=== PATIENT | female | born 1950 | race Caucasian/White ===

== ENCOUNTER 2018-07-11 13:08 | Inpatient (IN) | payer OTHER ==
[2018-07-11] VITALS (9 sets, daily range): BP systolic 96–150; BP diastolic 44–65
[~2018-07-11] VITALS: Ht 165.1 cm; Wt 101.3 kg
[~2018-07-11 13:08] MED LIST: AMLO10TA80 PO; ASPI-986 PO; ATEN-42 PO; CHOL500010 PO; CITA20TA75 PO; CLOP75TA33 PO; ESOM40CA PO; GABA-531 PO; HYDR25TA PO; LINA5TAB PO; LIRA0.6P2 SUBCUT; LOSA25TA12 PO; METF500T7 PO; METO-293 PO; POTA10CA42 PO
[2018-07-11] MEDS ORDERED: DEXTROSE 50% WATER 50ML SYRINGE IV ONE ×2 (13:26→17:40)
[2018-07-11] MEDS ORDERED: SODIUM CHLORIDE 0.9% 1000ML BAG (SEPSIS BOLUS) IV ONE (13:45)
[2018-07-11 14:19] LABS: CLARITY URINE CLEAR (CLEAR); COLOR URINE YELLOW (YELLOW); KETONES URINE NEGATIVE (NEGATIVE); LEUKOCYTE ESTERASE URINE NEGATIVE (NEGATIVE); NITRITE URINE NEGATIVE (NEGATIVE); OCCULT BLOOD URINE NEGATIVE (NEGATIVE); PH URINE 6.5 (4.5-8.0); PROTEIN URINE NEGATIVE (NEGATIVE); SPECIFIC GRAVITY URINE 1.012 (1.005-1.030); UROBILINOGEN URINE 0.2 E.U./dL (0.2-1.0)
[2018-07-11 14:20] LABS: BASOPHILS % 0.4 % (0.0-2.0); EOSINOPHILS % 1.1 % (0.0-5.0); HEMATOCRIT. 39.4 % (36.0-48.0); HEMOGLOBIN. 13.2 g/dL (12.0-16.0); LYMPHOCYTES % 29.8 % (20.0-50.0); MEAN CORPUSCULAR HEMOGLOBIN 28.2 pg (28.0-32.0); MEAN CORPUSCULAR VOLUME 84.4 fL (81.0-99.0); MEAN PLATELET VOLUME 7.6 fl (7.4-10.4); MONOCYTES % 4.5 % (2.0-8.0); NEUTROPHILS % 64.2 % (40.0-76.0); PLATELET 266 x1000/uL (130-400); RED BLOOD CELL COUNT 4.67 mill/uL (4.2-5.4); RED CELL DISTRIBUTION WIDTH 16.3 % (11.6-14.6)
[2018-07-11 14:23] LABS: CHLORIDE 105 mEq/L (98-107); INR 0.9; PROTHROMBIN TIME 9.4 sec (9.1-11.1)
[2018-07-11] MEDS ORDERED: AZTREONAM 2 GM in DEXT 5% WATER 100 ML IV ONE (14:45)
[2018-07-11] MEDS ORDERED: LEVOFLOXACIN 750MG PREMIX 150 ML IV SCH (14:45)
[2018-07-11] MEDS ORDERED: FENTANYL CITRATE/PF 500 MCG in SODIUM CHLORIDE 0.9% 40 ML IV STA ×2 (14:51→15:57)
[2018-07-11] MEDS ORDERED: FENTANYL CITRATE/PF 50MCG/ML 2ML VIAL IV ONE (15:00)
[2018-07-11] MEDS ORDERED: ETOMIDATE 2MG/ML 10ML VIAL IV ONE (15:00)
[2018-07-11] MEDS ORDERED: SUCCINYLCHOLINE CHLORIDE 200MG/10ML IV ONE (15:00)
[2018-07-11] MEDS: PROPOFOL 10MG/ML 100ML 100 ML IV SCH ×2 (15:15→20:28)
[2018-07-11 15:48] LABS: BG BASE EXCESS -1.9 mmol/L (-2.0-2.0); BG CARBOXYHEMOGLOBIN 0.1 % (0.5-1.5); BG DEOXYHEMOGLOBIN 0.8 % (0.0-5.0); BG FRACTION INSPIRED OXYGEN 60; BG HCO3 ACT 24.8 mmol/L (22.0-26.0); BG METHEMOGLOBIN 0.3 % (0.0-1.5); BG OXYGEN SATURATION 99.2 % (92.0-98.5); BG OXYHEMOGLOBIN 98.8 % (94.0-97.0); BG PCO2 50.2 mmHg (35.0-45.0); BG PH 7.311 (7.350-7.450); BG PO2 234.8 mmHg (75.0-100.0); BG SAMPLE SITE RIGHT BRACHIAL; BG TIDAL VOLUME(mL) 500 mL; BG TOTAL HEMOGLOBIN 11.8 g/dL (12.0-18.0); BG VENT MODE VENT - A/C; BG VENT RATE 14 set
[2018-07-11] MEDS ORDERED: DEXTROSE 50% WATER 50ML SYRINGE IV NR (17:40)
[2018-07-11] MEDS ORDERED: SODIUM CHLORIDE 0.9% 1,000 ML IV SCH (19:10)
[2018-07-11] MEDS ORDERED: IPRATROPIUM/ALBUTEROL 0.5-3(2.5)MG/3ML NEB INH PRN (19:15)
[2018-07-11] MEDS ORDERED: ACETAMINOPHEN 325MG TABLET PO PRN (19:15)
[2018-07-11] MEDS ORDERED: FENTANYL CITRATE/PF 500 MCG in SODIUM CHLORIDE 0.9% 40 ML IV PRN (19:15)
[2018-07-11] MEDS ORDERED: DOCUSATE SODIUM 100MG CAPSULE PO PRN (19:15)
[2018-07-11] MEDS ORDERED: ONDANSETRON HCL 4MG/2ML INJ IV PRN (19:15)
[2018-07-11] MEDS ORDERED: MAGNESIUM/ALUMINUM HYDROXIDE/SIMETHICONE 30ML UDC PO PRN (19:15)
[2018-07-11] MEDS ORDERED: GUAIFENESIN 200MG/10ML SUGAR FREE UDC PO PRN (19:15)
[2018-07-11] MEDS: IPRATROPIUM/ALBUTEROL 0.5-3(2.5)MG/3ML NEB HHN SCH (20:20)
[2018-07-11] MEDS: ENOXAPARIN 30MG/0.3ML SYR SUBCUT SCH (20:27)
[2018-07-11 20:30] LABS: BG BASE EXCESS -1.4 mmol/L (-2.0-2.0); BG CARBOXYHEMOGLOBIN 0.3 % (0.5-1.5); BG DEOXYHEMOGLOBIN 1.1 % (0.0-5.0); BG FRACTION INSPIRED OXYGEN 40; BG HCO3 ACT 22.5 mmol/L (22.0-26.0); BG METHEMOGLOBIN 0.2 % (0.0-1.5); BG OXYGEN SATURATION 98.9 % (92.0-98.5); BG OXYHEMOGLOBIN 98.4 % (94.0-97.0); BG PCO2 35.4 mmHg (35.0-45.0); BG PH 7.422 (7.350-7.450); BG PO2 155.3 mmHg (75.0-100.0); BG SAMPLE SITE LEFT RADIAL; BG TIDAL VOLUME(mL) 500 mL; BG TOTAL HEMOGLOBIN 11.5 g/dL (12.0-18.0); BG VENT MODE VENT - A/C; BG VENT RATE 16 set
[2018-07-11] MEDS ORDERED: DEXT 5%/0.9% NACL 1,000 ML IV SCH (21:15)
[2018-07-11] MEDS: PROPOFOL 10MG/ML 100ML 100 ML IV PRN (21:46)
[2018-07-11] MEDS: DEXTROSE 50% WATER 50ML SYRINGE IV PRN (21:47)
[2018-07-12] VITALS (41 sets, daily range): BP systolic 100–166; BP diastolic 44–142
[2018-07-12] MEDS: IPRATROPIUM/ALBUTEROL 0.5-3(2.5)MG/3ML NEB HHN SCH ×6 (00:16→20:49)
[2018-07-12] MEDS: PROPOFOL 10MG/ML 100ML 100 ML IV PRN ×2 (03:04→06:40)
[2018-07-12] MEDS: DEXT 10% WATER 1,000 ML IV SCH ×2 (03:04→13:45)
[2018-07-12 06:32] LABS: BASOPHILS % 0.4 % (0.0-2.0); EOSINOPHILS % 0.8 % (0.0-5.0); LYMPHOCYTES % 31.1 % (20.0-50.0); MEAN CORPUSCULAR HEMOGLOBIN 28.2 pg (28.0-32.0); MEAN CORPUSCULAR VOLUME 86.8 fL (81.0-99.0); MEAN PLATELET VOLUME 7.5 fl (7.4-10.4); MONOCYTES % 5.9 % (2.0-8.0); NEUTROPHILS % 61.8 % (40.0-76.0); PLATELET 225 x1000/uL (130-400); RED BLOOD CELL COUNT 4.26 mill/uL (4.2-5.4); RED CELL DISTRIBUTION WIDTH 16.9 % (11.6-14.6)
[2018-07-12 06:40] LABS: CHLORIDE 111 mEq/L (98-107)
[2018-07-12 08:46] LABS: TOTAL IRON BINDING CAPACITY 266 ug/dL (250-450)
[2018-07-12] MEDS: ENOXAPARIN 30MG/0.3ML SYR SUBCUT SCH ×2 (08:49→20:50)
[2018-07-12 08:58] LABS: BG BASE EXCESS -3.4 mmol/L (-2.0-2.0); BG CARBOXYHEMOGLOBIN 0.3 % (0.5-1.5); BG DEOXYHEMOGLOBIN 1.4 % (0.0-5.0); BG FRACTION INSPIRED OXYGEN 40; BG HCO3 ACT 21.3 mmol/L (22.0-26.0); BG METHEMOGLOBIN 0.3 % (0.0-1.5); BG OXYGEN SATURATION 98.6 % (92.0-98.5); BG PCO2 36.8 mmHg (35.0-45.0); BG PO2 140.9 mmHg (75.0-100.0); BG SAMPLE SITE RIGHT RADIAL; BG TIDAL VOLUME(mL) 500 mL; BG TOTAL HEMOGLOBIN 10.9 g/dL (12.0-18.0); BG VENT MODE VENT - A/C; BG VENT RATE 16 set
[2018-07-12] MEDS ORDERED: VANCOMYCIN 2,000 MG in DEXT 5% WATER 500 ML IV SCH (09:00)
[2018-07-12] MEDS: BLOOD SUGAR DIAGNOSTIC STRIP TEST SCH ×5 (09:29→18:34)
[2018-07-12] MEDS: AZTREONAM 2 GM in DEXT 5% WATER 100 ML IV SCH ×2 (09:29→20:50)
[2018-07-12 10:11] LABS: VITAMIN B12 SERUM 1161 pg/mL (211-911)
[2018-07-12] MEDS: DEXTROSE 50% WATER 50ML SYRINGE IV PRN (11:41)
[2018-07-12 11:58] LABS: BG BASE EXCESS 0.7 mmol/L (-2.0-2.0); BG CARBOXYHEMOGLOBIN 0.3 % (0.5-1.5); BG DEOXYHEMOGLOBIN 1.7 % (0.0-5.0); BG FRACTION INSPIRED OXYGEN 40; BG METHEMOGLOBIN 0.4 % (0.0-1.5); BG OXYGEN SATURATION 98.3 % (92.0-98.5); BG OXYHEMOGLOBIN 97.6 % (94.0-97.0); BG PCO2 38.9 mmHg (35.0-45.0); BG PH 7.426 (7.350-7.450); BG PO2 116.6 mmHg (75.0-100.0); BG PRESSURE SUPPORT 8; BG SAMPLE SITE RIGHT BRACHIAL; BG TOTAL HEMOGLOBIN 12.2 g/dL (12.0-18.0); BG VENT MODE VENT - CPAP
[2018-07-12 15:15] LABS: T4 FREE 0.9 ng/dL (0.76-1.46)
[2018-07-12] MEDS ORDERED: S350 PO (18:01)
[2018-07-12] MEDS ORDERED: ATOR40TA70 MT (18:01)
[2018-07-12] MEDS ORDERED: EMPA25TA MT (18:01)
[2018-07-12] MEDS ORDERED: KETO120S3 TP (18:01)
[2018-07-12] MEDS ORDERED: BECL10.62 IH (18:01)
[2018-07-12] MEDS ORDERED: HYDR12.518 PO (18:01)
[2018-07-12] MEDS ORDERED: PYRI60TA10 PO (18:01)
[2018-07-12] MEDS ORDERED: INSU300I3 SQ (18:01)
[2018-07-12] MEDS ORDERED: ALBU90AE INH (18:01)
[2018-07-12] MEDS ORDERED: LOSA50TA20 MT (18:01)
[2018-07-12] MEDS ORDERED: OMEP20CA10 PO (18:01)
[2018-07-12] MEDS ORDERED: CLOT113C TP (18:01)
[2018-07-12] MEDS ORDERED: INSU100I7 SQ (18:01)
[2018-07-12] MEDS ORDERED: HYDR-3513 MT (18:01)
[2018-07-12] MEDS ORDERED: CLOP75TA33 MT (18:01)
[2018-07-12] MEDS: ATENOLOL 25MG TABLET PO SCH (18:58)
[2018-07-12] MEDS: AMLODIPINE 10MG TABLET PO SCH (18:58)
[2018-07-12] MEDS: LOSARTAN POTASSIUM 25 MG TABLET PO SCH (20:50)
[2018-07-12] MEDS ORDERED: COSYNTROPIN 0.25MG/ML VIAL IV NR (21:00)
[2018-07-12] MEDS ORDERED: VANCOMYCIN 750 MG PREMIX 150 ML IV SCH (21:00)
[2018-07-13] VITALS (21 sets, daily range): BP systolic 104–149; BP diastolic 42–69
[2018-07-13] MEDS: BLOOD SUGAR DIAGNOSTIC STRIP TEST SCH ×10 (00:06→21:00)
[2018-07-13] MEDS: IPRATROPIUM/ALBUTEROL 0.5-3(2.5)MG/3ML NEB HHN SCH ×6 (00:55→20:41)
[2018-07-13] MEDS: DEXT 10% WATER 1,000 ML IV SCH (05:19)
[2018-07-13 05:46] LABS: BASOPHILS % 0.8 % (0.0-2.0); EOSINOPHILS % 1.1 % (0.0-5.0); HEMATOCRIT. 33.4 % (36.0-48.0); HEMOGLOBIN. 11.1 g/dL (12.0-16.0); LYMPHOCYTES % 25.5 % (20.0-50.0); MEAN CORPUSCULAR VOLUME 84.4 fL (81.0-99.0); MEAN PLATELET VOLUME 7.7 fl (7.4-10.4); MONOCYTES % 5.6 % (2.0-8.0); PLATELET 256 x1000/uL (130-400); RED BLOOD CELL COUNT 3.96 mill/uL (4.2-5.4); RED CELL DISTRIBUTION WIDTH 16.3 % (11.6-14.6)
[2018-07-13 06:08] LABS: CHLORIDE 111 mEq/L (98-107)
[2018-07-13 06:13] LABS: PHOSPHORUS 2.8 mg/dL (2.5-4.9)
[2018-07-13] MEDS: AZTREONAM 2 GM in DEXT 5% WATER 100 ML IV SCH ×2 (08:18→22:02)
[2018-07-13] MEDS: LOSARTAN POTASSIUM 25 MG TABLET PO SCH ×2 (08:29→22:04)
[2018-07-13] MEDS: HYDROCHLOROTHIAZIDE 25MG TABLET PO SCH (08:29)
[2018-07-13] MEDS: ENOXAPARIN 30MG/0.3ML SYR SUBCUT SCH ×2 (08:30→22:04)
[2018-07-13 09:09] LABS: FOLATE HEMATOCRIT 31.1 % (34.0-46.6)
[2018-07-13] MEDS: AMLODIPINE 10MG TABLET PO SCH (10:03)
[2018-07-13] MEDS: ATENOLOL 25MG TABLET PO SCH (10:03)
[2018-07-13] MEDS ORDERED: DEXTROSE 50% WATER 50ML SYRINGE IV PRN (12:45)
[2018-07-13] MEDS: INSULIN LISPRO 100 UNITS/ML SUBCUT SCH ×4 (13:23→22:04)
[2018-07-13] MEDS ORDERED: INSULIN GLARGINE UD 100 UNITS/ML SYR SUBCUT NR (14:00)
[2018-07-13] MEDS ORDERED: BLOOD SUGAR DIAGNOSTIC STRIP TEST SCH (16:30)
[2018-07-13] MEDS: VANCOMYCIN 1 G PREMIX 200 ML IV SCH (16:47)
[2018-07-13] MEDS ORDERED: INSULIN LISPRO 100 UNITS/ML SUBCUT SCH (17:00)
[2018-07-13] MEDS ORDERED: PANTOPRAZOLE SODIUM 40 MG/VIAL IV NR (17:00)
[2018-07-13] MEDS ORDERED: INSULIN GLARGINE UD 100 UNITS/ML SYR SUBCUT SCH (22:00)
[2018-07-13] MEDS: NYSTATIN POWDER 15GM TOP SCH (22:03)
[2018-07-14] VITALS (9 sets, daily range): BP systolic 120–146; BP diastolic 49–58
[2018-07-14] MEDS: IPRATROPIUM/ALBUTEROL 0.5-3(2.5)MG/3ML NEB HHN SCH ×7 (01:53→23:59)
[2018-07-14] MEDS: HYDROCODONE/ACETAMINOPHEN 5/325MG TABLET PO PRN (05:47)
[2018-07-14] MEDS: NYSTATIN POWDER 15GM TOP SCH ×3 (05:48→20:55)
[2018-07-14 07:11] LABS: BASOPHILS % 0.4 % (0.0-2.0); EOSINOPHILS % 1.1 % (0.0-5.0); HEMATOCRIT. 31.8 % (36.0-48.0); HEMOGLOBIN. 10.7 g/dL (12.0-16.0); LYMPHOCYTES % 29.8 % (20.0-50.0); MEAN CORPUSCULAR HEMOGLOBIN 28.2 pg (28.0-32.0); MEAN CORPUSCULAR VOLUME 84.1 fL (81.0-99.0); MEAN PLATELET VOLUME 7.6 fl (7.4-10.4); NEUTROPHILS % 63.7 % (40.0-76.0); PLATELET 241 x1000/uL (130-400); RED BLOOD CELL COUNT 3.78 mill/uL (4.2-5.4); RED CELL DISTRIBUTION WIDTH 16.7 % (11.6-14.6)
[2018-07-14 08:00] LABS: CHLORIDE 106 mEq/L (98-107)
[2018-07-14] MEDS: BLOOD SUGAR DIAGNOSTIC STRIP TEST SCH ×4 (08:17→21:02)
[2018-07-14] MEDS: AZTREONAM 2 GM in DEXT 5% WATER 100 ML IV SCH ×2 (08:18→21:42)
[2018-07-14] MEDS: VANCOMYCIN 1 G PREMIX 200 ML IV SCH (08:18)
[2018-07-14] MEDS: PANTOPRAZOLE SODIUM 40 MG/VIAL IV SCH (08:19)
[2018-07-14] MEDS: ENOXAPARIN 30MG/0.3ML SYR SUBCUT SCH ×2 (08:19→20:55)
[2018-07-14] MEDS: ATENOLOL 25MG TABLET PO SCH (08:21)
[2018-07-14] MEDS: LOSARTAN POTASSIUM 25 MG TABLET PO SCH ×2 (08:22→20:54)
[2018-07-14] MEDS: HYDROCHLOROTHIAZIDE 25MG TABLET PO SCH (08:22)
[2018-07-14 08:24] LABS: FOLATE RBC 1376 ng/mL (>498); FOLICLE STIMULATING HORMONE 27.6 mIU/mL (.)
[2018-07-14] MEDS: AMLODIPINE 10MG TABLET PO SCH (08:24)
[2018-07-14] MEDS: PREDNISONE 5MG TABLET PO SCH ×2 (08:25→17:21)
[2018-07-14] MEDS: INSULIN LISPRO 100 UNITS/ML SUBCUT SCH ×7 (08:27→21:02)
[2018-07-14] MEDS ORDERED: INSULIN GLARGINE UD 100 UNITS/ML SYR SUBCUT SCH ×2 (10:00→22:00)
[2018-07-14] MEDS ORDERED: VANCOMYCIN 1 G PREMIX 200 ML IV SCH ×2 (16:00→22:00)
[2018-07-15] VITALS (7 sets, daily range): BP systolic 117–151; BP diastolic 51–61
[2018-07-15] MEDS: IPRATROPIUM/ALBUTEROL 0.5-3(2.5)MG/3ML NEB HHN SCH ×4 (03:58→18:03)
[2018-07-15] MEDS: NYSTATIN POWDER 15GM TOP SCH ×3 (06:24→22:10)
[2018-07-15] MEDS: BLOOD SUGAR DIAGNOSTIC STRIP TEST SCH ×4 (07:20→21:56)
[2018-07-15 07:27] LABS: BASOPHILS % 0.5 % (0.0-2.0); EOSINOPHILS % 0.8 % (0.0-5.0); HEMATOCRIT. 34.2 % (36.0-48.0); HEMOGLOBIN. 11.4 g/dL (12.0-16.0); MEAN CORPUSCULAR HEMOGLOBIN 28.3 pg (28.0-32.0); MEAN CORPUSCULAR VOLUME 84.7 fL (81.0-99.0); MEAN PLATELET VOLUME 7.7 fl (7.4-10.4); MONOCYTES % 3.5 % (2.0-8.0); NEUTROPHILS % 79.2 % (40.0-76.0); PLATELET 248 x1000/uL (130-400); RED BLOOD CELL COUNT 4.03 mill/uL (4.2-5.4); RED CELL DISTRIBUTION WIDTH 16.6 % (11.6-14.6)
[2018-07-15] MEDS ORDERED: GLIMEPIRIDE 1MG TABLET PO SCH ×2 (07:50→09:00)
[2018-07-15] MEDS ORDERED: VANCOMYCIN 1 G PREMIX 200 ML IV SCH (08:00)
[2018-07-15] MEDS: INSULIN LISPRO 100 UNITS/ML SUBCUT SCH ×7 (08:07→22:09)
[2018-07-15] MEDS: ENOXAPARIN 30MG/0.3ML SYR SUBCUT SCH ×2 (08:14→20:34)
[2018-07-15] MEDS: LOSARTAN POTASSIUM 25 MG TABLET PO SCH ×2 (08:15→20:32)
[2018-07-15] MEDS: HYDROCHLOROTHIAZIDE 25MG TABLET PO SCH (08:15)
[2018-07-15] MEDS: LINAGLIPTIN 5MG TABLET PO SCH (08:15)
[2018-07-15] MEDS: AMLODIPINE 10MG TABLET PO SCH (08:15)
[2018-07-15] MEDS: PREDNISONE 5MG TABLET PO SCH ×2 (08:15→16:42)
[2018-07-15] MEDS: PANTOPRAZOLE SODIUM 40 MG/VIAL IV SCH ×2 (08:15→08:24)
[2018-07-15] MEDS: ATENOLOL 25MG TABLET PO SCH (08:15)
[2018-07-15] MEDS: AZTREONAM 2 GM in DEXT 5% WATER 100 ML IV SCH (09:00)
[2018-07-15 09:13] LABS: CHLORIDE 102 mEq/L (98-107)
[2018-07-15 09:18] LABS: PHOSPHORUS 3.8 mg/dL (2.5-4.9)
[2018-07-15] MEDS ORDERED: INSULIN GLARGINE UD 100 UNITS/ML SYR SUBCUT SCH ×3 (10:00→22:00)
[2018-07-15] MEDS ORDERED: INSULIN LISPRO 100 UNITS/ML SUBCUT PRN (12:30)
[2018-07-15] MEDS ORDERED: BISACODYL 10MG SUPP PR PRN (13:15)
[2018-07-15] MEDS: GLIMEPIRIDE 2MG TABLET PO SCH (16:55)
[2018-07-15] MEDS: SENNOSIDES/DOCUSATE SOD 8.6/50MG TABLET PO SCH (20:32)
[2018-07-15] MEDS: INSULIN GLARGINE UD 100 UNITS/ML SYR SUBCUT SCH (22:09)
[2018-07-15] MEDS: HYDROCODONE/ACETAMINOPHEN 5/325MG TABLET PO PRN (22:11)
[2018-07-16] VITALS: BP 129/45
[2018-07-16 04:00] VITALS: BP 142/60
[2018-07-16] MEDS: IPRATROPIUM/ALBUTEROL 0.5-3(2.5)MG/3ML NEB HHN SCH ×6 (04:00→20:04)
[2018-07-16] MEDS: NYSTATIN POWDER 15GM TOP SCH ×3 (06:32→21:01)
[2018-07-16] MEDS: BLOOD SUGAR DIAGNOSTIC STRIP TEST SCH ×4 (06:36→21:04)
[2018-07-16] MEDS: INSULIN LISPRO 100 UNITS/ML SUBCUT SCH ×7 (06:57→21:11)
[2018-07-16 08:00] VITALS: BP 136/86
[2018-07-16] MEDS: GLIMEPIRIDE 2MG TABLET PO SCH ×2 (08:43→17:02)
[2018-07-16] MEDS: ENOXAPARIN 30MG/0.3ML SYR SUBCUT SCH ×2 (08:43→21:01)
[2018-07-16] MEDS: PANTOPRAZOLE SODIUM 40 MG/VIAL IV SCH ×2 (08:43→08:47)
[2018-07-16] MEDS: HYDROCHLOROTHIAZIDE 25MG TABLET PO SCH (08:44)
[2018-07-16] MEDS: AMLODIPINE 10MG TABLET PO SCH (08:44)
[2018-07-16] MEDS: LINAGLIPTIN 5MG TABLET PO SCH (08:44)
[2018-07-16] MEDS: LOSARTAN POTASSIUM 25 MG TABLET PO SCH ×2 (08:44→21:01)
[2018-07-16] MEDS: PREDNISONE 5MG TABLET PO SCH ×2 (08:44→16:00)
[2018-07-16] MEDS: ATENOLOL 25MG TABLET PO SCH (08:44)
[2018-07-16 09:37] LABS: BASOPHILS % 0.8 % (0.0-2.0); EOSINOPHILS % 1.5 % (0.0-5.0); HEMATOCRIT. 36.7 % (36.0-48.0); HEMOGLOBIN. 12.1 g/dL (12.0-16.0); LYMPHOCYTES % 27.8 % (20.0-50.0); MEAN CORPUSCULAR HEMOGLOBIN 27.9 pg (28.0-32.0); MEAN CORPUSCULAR VOLUME 84.9 fL (81.0-99.0); MEAN PLATELET VOLUME 7.3 fl (7.4-10.4); MONOCYTES % 4.4 % (2.0-8.0); NEUTROPHILS % 65.5 % (40.0-76.0); PLATELET 278 x1000/uL (130-400); RED BLOOD CELL COUNT 4.32 mill/uL (4.2-5.4); RED CELL DISTRIBUTION WIDTH 16.6 % (11.6-14.6)
[2018-07-16 09:51] LABS: CHLORIDE 106 mEq/L (98-107)
[2018-07-16 09:55] LABS: PHOSPHORUS 2.9 mg/dL (2.5-4.9)
[2018-07-16] MEDS: INSULIN GLARGINE UD 100 UNITS/ML SYR SUBCUT SCH ×2 (10:05→21:11)
[2018-07-16 12:00] VITALS: BP 123/57
[2018-07-16 16:00] VITALS: BP 143/51
[2018-07-16] MEDS ORDERED: DIPHENHYDRAMINE 25MG CAPSULE PO PRN (16:30)
[2018-07-16 20:00] VITALS: BP 119/59
[2018-07-16] MEDS ORDERED: IPRATROPIUM/ALBUTEROL 0.5-3(2.5)MG/3ML NEB ONE (20:10)
[2018-07-16] MEDS: SENNOSIDES/DOCUSATE SOD 8.6/50MG TABLET PO SCH (21:01)
[2018-07-17] VITALS: BP 142/63
[2018-07-17] MEDS: IPRATROPIUM/ALBUTEROL 0.5-3(2.5)MG/3ML NEB HHN SCH ×5 (00:18→15:39)
[2018-07-17 04:00] VITALS: BP 148/55
[2018-07-17] MEDS: NYSTATIN POWDER 15GM TOP SCH ×2 (06:12→14:57)
[2018-07-17] MEDS: BLOOD SUGAR DIAGNOSTIC STRIP TEST SCH ×2 (06:31→12:28)
[2018-07-17] MEDS: INSULIN LISPRO 100 UNITS/ML SUBCUT SCH ×4 (07:04→13:35)
[2018-07-17 07:34] LABS: BASOPHILS % 0.6 % (0.0-2.0); EOSINOPHILS % 1.2 % (0.0-5.0); HEMOGLOBIN. 11.6 g/dL (12.0-16.0); LYMPHOCYTES % 26.5 % (20.0-50.0); MEAN CORPUSCULAR VOLUME 84.3 fL (81.0-99.0); MEAN PLATELET VOLUME 7.1 fl (7.4-10.4); MONOCYTES % 6.3 % (2.0-8.0); NEUTROPHILS % 65.4 % (40.0-76.0); PLATELET 291 x1000/uL (130-400); RED BLOOD CELL COUNT 4.15 mill/uL (4.2-5.4); RED CELL DISTRIBUTION WIDTH 16.4 % (11.6-14.6)
[2018-07-17 08:00] VITALS: BP 129/61
[2018-07-17] MEDS: PANTOPRAZOLE SODIUM 40 MG/VIAL IV SCH (08:32)
[2018-07-17] MEDS: AMLODIPINE 10MG TABLET PO SCH (08:32)
[2018-07-17] MEDS: LOSARTAN POTASSIUM 25 MG TABLET PO SCH (08:32)
[2018-07-17] MEDS: HYDROCHLOROTHIAZIDE 25MG TABLET PO SCH (08:32)
[2018-07-17] MEDS: GLIMEPIRIDE 2MG TABLET PO SCH (08:32)
[2018-07-17] MEDS: PREDNISONE 5MG TABLET PO SCH (08:32)
[2018-07-17] MEDS: LINAGLIPTIN 5MG TABLET PO SCH (08:33)
[2018-07-17] MEDS: ATENOLOL 25MG TABLET PO SCH (08:33)
[2018-07-17] MEDS: ENOXAPARIN 30MG/0.3ML SYR SUBCUT SCH (08:34)
[2018-07-17 08:47] LABS: CHLORIDE 103 mEq/L (98-107)
[2018-07-17] MEDS: INSULIN GLARGINE UD 100 UNITS/ML SYR SUBCUT SCH (10:19)
[2018-07-17 12:00] VITALS: BP 147/65
[2018-07-17 16:00] VITALS: BP 117/57
== END 2018-07-17 17:21 | disposition home or self-care (01) | DRG 871 ==
LOC: ER 13:26 → EDBEDREQSVC 14:46 → EDBEDREQ 14:46 → ENRESERV 17:02 → MICUSO 17:58 → 5EST 07-13 20:10 → 6EST 07-14 15:25
PROVIDERS: ADMIT Internal Medicine; ATTEND Internal Medicine
PROC: 5A1935Z Respiratory Ventilation, Less than 24 Consecutive Hours (ICD-10-PCS; principal; 2018-07-11)
PROC: 0BH17EZ Insertion of Endotracheal Airway into Trachea, Via Natural or Artificial Opening (ICD-10-PCS; 2018-07-11)
DX: A41.9 Sepsis, unspecified organism (principal); G92 Toxic encephalopathy; J96.02 Acute respiratory failure with hypercapnia; E87.2 Acidosis; E44.0 Moderate protein-calorie malnutrition; N39.0 Urinary tract infection, site not specified; E78.5 Hyperlipidemia, unspecified; E66.01 Morbid (severe) obesity due to excess calories; E11.649 Type 2 diabetes mellitus with hypoglycemia without coma; D50.9 Iron deficiency anemia, unspecified; E11.65 Type 2 diabetes mellitus with hyperglycemia; E87.6 Hypokalemia; E88.81 Metabolic syndrome and other insulin resistance; I11.9 Hypertensive heart disease without heart failure; I25.10 Atherosclerotic heart disease of native coronary artery without angina pectoris; J44.9 Chronic obstructive pulmonary disease, unspecified; Z79.4 Long term (current) use of insulin; Z82.49 Family history of ischemic heart disease and other diseases of the circulatory system; Z83.3 Family history of diabetes mellitus; Z91.19 Patient's noncompliance with other medical treatment and regimen; Z95.1 Presence of aortocoronary bypass graft; Z88.0 Allergy status to penicillin; Z68.37 Body mass index [BMI] 37.0-37.9, adult
CPT/HCPCS: 31500; 36415; 36600; 70450; 71045; 80048; 80053; 80202; 81003; 82024; 82088; 82375; 82533; 82607; 82747; 82805; 82962; 83001; 83002; 83036; 83540; 83550; 83605; 83735; 84100; 84145; 84439; 84443; 84478; 85014; 85025; 85610; 87040; 87086; 92610; 93005; 93306; 93970; 94002; 94003; 94640; 96374; 97116; 97163; 97530; 99291; A6261; C1893; C9113; J0834; J1650; J1815; J1956; J2704; J3010; J3370; J3490; J7030; J7042; J7050; J7060; J7512; J7620; Q0163

== ENCOUNTER 2023-03-29 09:29 | Inpatient (IN) | payer MEDICARE, OTHER ==
[~2023-03-29] VITALS: Ht 157.5 cm; Wt 102.3 kg
[~2023-03-29 09:29] MED LIST changes: +ALBU90AE INH; +ATOR40TA70 MT; +BECL10.62 IH; +CARI350T28 PO; +CLOP75TA33 MT; +CLOT113C TP; +EMPA25TA MT; -GABA-531 PO; +GABA-532 PO; +HYDR-3513 MT; +HYDR12.518 PO; +INSU100I7 SQ; +INSU300I3 SQ; -LOSA25TA12 PO; +LOSA25TA26 PO; +METF-907 PO; -METF500T7 PO; +NIZOS TP; +OMEP20CA14 PO; -POTA10CA42 PO; +POTA10CA43 PO; +PYRI60TA10 PO
[2023-03-29 09:53] LABS: BASOPHILS % 0.7 % (0.0-2.0); EOSINOPHILS % 0.1 % (0.0-5.0); HEMATOCRIT. 40.5 % (36.0-48.0); HEMOGLOBIN. 13.7 g/dL (12.0-16.0); LYMPHOCYTES % 21.8 % (20.0-50.0); MEAN CORPUSCULAR HEMOGLOBIN 28.2 pg (28.0-32.0); MEAN CORPUSCULAR VOLUME 83.5 fL (81.0-99.0); MEAN PLATELET VOLUME 7.8 fl (7.4-10.4); MONOCYTES % 5.2 % (2.0-8.0); NEUTROPHILS % 72.2 % (40.0-76.0); PLATELET 343 x1000/uL (130-400); RED BLOOD CELL COUNT 4.86 mill/uL (4.2-5.4); RED CELL DISTRIBUTION WIDTH 14.7 % (11.6-14.6)
[2023-03-29 10:02] LABS: CHLORIDE 96 mEq/L (98-107)
[2023-03-29] MEDS: KCL 10MEQ/50ML PREMIX 100 ML IV SCH ×2 (11:15→12:55)
[2023-03-29] MEDS ORDERED: SODIUM CHLORIDE 0.9% 1,000 ML IV ONE ×2 (11:15)
[2023-03-29] MEDS ORDERED: ONDANSETRON HCL 4MG/2ML INJ IV ONE (11:15)
[2023-03-29] MEDS ORDERED: METOCLOPRAMIDE HCL 10MG/2ML VIAL IV ONE (14:30)
[2023-03-29] MEDS ORDERED: ACETAMINOPHEN 325MG TABLET PO PRN (16:00)
[2023-03-29] MEDS ORDERED: MAGNESIUM/ALUMINUM HYDROXIDE/SIMETHICONE 30ML UDC PO PRN (16:00)
[2023-03-29] MEDS ORDERED: ONDANSETRON HCL 4MG/2ML INJ IV PRN (16:00)
[2023-03-29] MEDS ORDERED: LEVOFLOXACIN 500MG PREMIX 100 ML IV NR (16:00)
[2023-03-29] MEDS ORDERED: MORPHINE SULFATE 2 MG/ML CPJ (NOT FOR IM USE) IV NR ×2 (16:00→23:15)
[2023-03-29] MEDS ORDERED: CLONIDINE 0.1MG TABLET PO PRN (16:00)
[2023-03-29] MEDS ORDERED: DEXTROSE 50% WATER 50ML SYRINGE IV PRN ×2 (16:00)
[2023-03-29] MEDS ORDERED: SODIUM CHLORIDE 0.9% 1,000 ML IV SCH (16:00)
[2023-03-29] MEDS ORDERED: NALOXONE HCL 0.4MG/ML VIAL IV PRN (16:15)
[2023-03-29] MEDS: BLOOD SUGAR DIAGNOSTIC STRIP TEST SCH ×2 (17:00→21:00)
[2023-03-29] MEDS ORDERED: ENOXAPARIN 40MG/0.4ML SYR SUBCUT SCH (17:00)
[2023-03-29 17:08] LABS: CLARITY URINE CLEAR (CLEAR); COLOR URINE YELLOW (YELLOW); KETONES URINE 4+ (NEGATIVE); LEUKOCYTE ESTERASE URINE NEGATIVE (NEGATIVE); NITRITE URINE NEGATIVE (NEGATIVE); OCCULT BLOOD URINE NEGATIVE (NEGATIVE); PH URINE 5.5 (4.5-8.0); PROTEIN URINE NEGATIVE (NEGATIVE); SPECIFIC GRAVITY URINE 1.027 (1.005-1.030); UROBILINOGEN URINE 0.2 E.U./dL (0.2-1.0)
[2023-03-29 17:26] LABS: *AMPHETAMINES SCREEN URINE NEGATIVE (NEGATIVE); *BARBITURATES SCREEN URINE NEGATIVE (NEGATIVE); *BENZODIAZEPINES SCREEN URINE NEGATIVE (NEGATIVE); *COCAINE SCREEN URINE NEGATIVE (NEGATIVE); CANNABINOID URINE SCREEN NEGATIVE (NEGATIVE); METHADONE URINE SCREEN NEGATIVE (NEGATIVE); OPIATES URINE SCREEN NEGATIVE (NEGATIVE); PHENCYCLIDINE URINE SCREEN NEGATIVE (NEGATIVE)
[2023-03-29] MEDS: INSULIN LISPRO 100 UNITS/ML SUBCUT SCH ×2 (18:20→21:00)
[2023-03-29] MEDS ORDERED: INSULIN LISPRO 100 UNITS/ML SUBCUT NR (19:15)
[2023-03-29 20:00] VITALS: BP 114/60; PULSE 118; RESP 20; TEMP 97.1
[2023-03-29 21:09] VITALS: BP 114/60; PULSE 109; RESP 18; TEMP 97.8
[2023-03-29] MEDS: INSULIN GLARGINE 100 UNITS/ML SUBCUT SCH (21:40)
[2023-03-29] MEDS: HYDROCODONE/ACETAMINOPHEN 5/325MG TABLET PO PRN (21:41)
[2023-03-29] MEDS: SODIUM CHL 0.9% + KCL 20MEQ/L 1,000 ML IV SCH (23:26)
[2023-03-29] MEDS: METOCLOPRAMIDE HCL 10MG/2ML VIAL IV SCH (23:30)
[2023-03-30] VITALS: BP 127/51; PULSE 103; RESP 20; TEMP 98.8
[2023-03-30 04:00] VITALS: BP 130/52; PULSE 94; RESP 18; TEMP 100.2
[2023-03-30] MEDS: METOCLOPRAMIDE HCL 10MG/2ML VIAL IV SCH ×4 (05:58→23:00)
[2023-03-30 06:16] LABS: BASOPHILS % 0.3 % (0.0-2.0); EOSINOPHILS % 0.3 % (0.0-5.0); HEMOGLOBIN. 10.9 g/dL (12.0-16.0); MEAN CORPUSCULAR HEMOGLOBIN 28.7 pg (28.0-32.0); MEAN CORPUSCULAR VOLUME 84.3 fL (81.0-99.0); MEAN PLATELET VOLUME 8.2 fl (7.4-10.4); MONOCYTES % 5.1 % (2.0-8.0); NEUTROPHILS % 70.3 % (40.0-76.0); PLATELET 237 x1000/uL (130-400); RED BLOOD CELL COUNT 3.79 mill/uL (4.2-5.4); RED CELL DISTRIBUTION WIDTH 14.4 % (11.6-14.6)
[2023-03-30 06:31] LABS: CHLORIDE 102 mEq/L (98-107)
[2023-03-30 06:49] LABS: HDL CHOLESTEROL 32 mg/dL (40-59); LDL CHOLESTEROL 88 mg/dL (5-100); PHOSPHORUS 2.4 mg/dL (2.5-4.9); T4 FREE 1.13 ng/dL (0.76-1.46)
[2023-03-30] MEDS: BLOOD SUGAR DIAGNOSTIC STRIP TEST SCH ×4 (07:20→21:03)
[2023-03-30 08:00] VITALS: BP 134/47; PULSE 87; RESP 20; TEMP 98.4
[2023-03-30] MEDS: INSULIN LISPRO 100 UNITS/ML SUBCUT SCH ×4 (08:00→21:00)
[2023-03-30] MEDS: PANTOPRAZOLE SODIUM 40 MG/VIAL IV SCH (08:46)
[2023-03-30] MEDS ORDERED: HEPARIN 25,000 UNITS PREMIX 250 ML IV SCH (09:30)
[2023-03-30] MEDS ORDERED: ENOXAPARIN 100MG/ML SYR SUBCUT NR (10:30)
[2023-03-30] MEDS ORDERED: ENOXAPARIN 120MG/0.8ML SYR SUBCUT NR (10:30)
[2023-03-30] MEDS: SODIUM CHL 0.9% + KCL 20MEQ/L 1,000 ML IV SCH ×2 (10:37→18:44)
[2023-03-30] MEDS: INSULIN GLARGINE 100 UNITS/ML SUBCUT SCH ×2 (10:38→22:34)
[2023-03-30 11:32] LABS: INR 1.1; PROTHROMBIN TIME 11.3 sec (9.6-11.0)
[2023-03-30 11:51] LABS: TOTAL IRON BINDING CAPACITY 246 ug/dL (250-450)
[2023-03-30 12:00] VITALS: BP 140/60; PULSE 78; RESP 19; TEMP 97.6
[2023-03-30] MEDS: ATENOLOL 50 MG TABLET PO SCH (13:06)
[2023-03-30] MEDS: ASPIRIN 81MG TABLET PO SCH (13:07)
[2023-03-30] MEDS: NITROGLYCERIN OINT 1GM/INCH UDPKT TD SCH ×2 (14:00→21:02)
[2023-03-30] MEDS ORDERED: POVIDONE-IODINE 10% TOPICAL SOLN 240ML TOP SCH (15:00)
[2023-03-30 16:00] VITALS: BP 138/70; PULSE 78; RESP 19; TEMP 98
[2023-03-30] MEDS ORDERED: LEVOFLOXACIN 250MG PREMIX 50 ML IV SCH (16:00)
[2023-03-30 20:00] VITALS: BP 116/37; PULSE 73; RESP 17; TEMP 97.9
[2023-03-31] VITALS: BP_SYST 113; BP_DIAS 42; BP_DIAS 46; PULSE 70; RESP 18; TEMP 97.7
[2023-03-31 04:00] VITALS: BP 150/54; PULSE 70; RESP 18; TEMP 97.5
[2023-03-31] MEDS: METOCLOPRAMIDE HCL 10MG/2ML VIAL IV SCH ×3 (06:01→18:09)
[2023-03-31] MEDS: NITROGLYCERIN OINT 1GM/INCH UDPKT TD SCH ×3 (06:04→22:15)
[2023-03-31] MEDS: BLOOD SUGAR DIAGNOSTIC STRIP TEST SCH ×4 (06:08→21:00)
[2023-03-31] MEDS: INSULIN LISPRO 100 UNITS/ML SUBCUT SCH ×3 (06:08→22:15)
[2023-03-31 06:49] LABS: BASOPHILS % 0.6 % (0.0-2.0); EOSINOPHILS % 2.7 % (0.0-5.0); HEMOGLOBIN. 13.5 g/dL (12.0-16.0); LYMPHOCYTES % 47.9 % (20.0-50.0); MEAN CORPUSCULAR HEMOGLOBIN 28.1 pg (28.0-32.0); MEAN CORPUSCULAR VOLUME 85.5 fL (81.0-99.0); MEAN PLATELET VOLUME 8.2 fl (7.4-10.4); MONOCYTES % 6.2 % (2.0-8.0); NEUTROPHILS % 42.6 % (40.0-76.0); PLATELET 279 x1000/uL (130-400); RED CELL DISTRIBUTION WIDTH 14.9 % (11.6-14.6)
[2023-03-31 07:04] LABS: CHLORIDE 105 mEq/L (98-107)
[2023-03-31 08:00] VITALS: BP 110/41; PULSE 78; RESP 17; TEMP 98.2
[2023-03-31] MEDS ORDERED: NITROGLYCERIN 50MCG/ML 10ML VIAL (CATH LAB) IV ONE (08:00)
[2023-03-31] MEDS ORDERED: NICARDIPINE 100MCG/ML 10ML VIAL (CATH LAB) IV ONE (08:00)
[2023-03-31] MEDS ORDERED: POTASSIUM CHLORIDE 20MEQ TABLET SR PO NR (09:00)
[2023-03-31] MEDS: INSULIN GLARGINE 100 UNITS/ML SUBCUT SCH ×2 (10:00→22:16)
[2023-03-31] MEDS ORDERED: POTASSIUM CHLORIDE INJ 40 MEQ in DEXT 5% WATER 500 ML IV NR (10:00)
[2023-03-31] MEDS: PANTOPRAZOLE SODIUM 40 MG/VIAL IV SCH (10:30)
[2023-03-31] MEDS: ASPIRIN 81MG TABLET PO SCH (10:30)
[2023-03-31] MEDS: ATENOLOL 50 MG TABLET PO SCH (10:31)
[2023-03-31 12:00] VITALS: BP 141/54; PULSE 64; RESP 16; TEMP 97.5
[2023-03-31] MEDS: LEVOFLOXACIN 500MG PREMIX 100 ML IV SCH ×2 (12:39→18:09)
[2023-03-31] MEDS: SODIUM CHL 0.9% + KCL 20MEQ/L 1,000 ML IV SCH (14:24)
[2023-03-31] MEDS ORDERED: HEPARIN 1000 UNITS/ML 10ML ONE ×2 (14:58→15:52)
[2023-03-31] MEDS ORDERED: LIDOCAINE HCL/PF 2% 20MG/ML 5 ML/VIAL ONE (14:58)
[2023-03-31] MEDS ORDERED: IODIXANOL 320MG/ML 100 ML BOTTLE IV ONE ×2 (14:58→16:26)
[2023-03-31] MEDS ORDERED: MIDAZOLAM HCL 2 MG/2 ML VIAL ONE (15:37)
[2023-03-31] MEDS ORDERED: FENTANYL CITRATE/PF 50MCG/ML 2ML VIAL ONE (15:37)
[2023-03-31] MEDS ORDERED: ASPIRIN/SOD BICARB/CITRIC ACID 324MG TAB EFF ONE (15:44)
[2023-03-31] MEDS ORDERED: ONDANSETRON HCL 4MG/2ML INJ ONE (15:52)
[2023-03-31 16:00] VITALS: BP 147/66; PULSE 67; RESP 16; TEMP 97.9
[2023-03-31] MEDS ORDERED: MORPHINE SULFATE 2 MG/ML CPJ (NOT FOR IM USE) IV PRN (17:00)
[2023-03-31] MEDS ORDERED: ATROPINE SULFATE 1MG/10ML SYR IV PRN (17:00)
[2023-03-31] MEDS ORDERED: ACETAMINOPHEN 325MG TABLET PO PRN (17:00)
[2023-03-31] MEDS ORDERED: SODIUM CHLORIDE 0.45% 1,000 ML IV ONE (17:00)
[2023-03-31] MEDS ORDERED: ONDANSETRON HCL 4MG/2ML INJ IV PRN (17:00)
[2023-03-31] MEDS ORDERED: CLOPIDOGREL 75MG TABLET PO NR (17:00)
[2023-03-31 20:00] VITALS: BP 136/76; PULSE 72; RESP 18; TEMP 98.2
[2023-04-01] VITALS: BP 150/57; PULSE 75; RESP 13; TEMP 98.7
[2023-04-01] MEDS: METOCLOPRAMIDE HCL 10MG/2ML VIAL IV SCH ×3 (00:09→11:26)
[2023-04-01] MEDS: SODIUM CHL 0.9% + KCL 20MEQ/L 1,000 ML IV SCH (01:48)
[2023-04-01 04:00] VITALS: BP 114/50; PULSE 73; RESP 17; TEMP 98.6
[2023-04-01 06:28] LABS: EOSINOPHILS % 2.6 % (0.0-5.0); HEMATOCRIT. 33.2 % (36.0-48.0); HEMOGLOBIN. 11.3 g/dL (12.0-16.0); LYMPHOCYTES % 37.7 % (20.0-50.0); MEAN CORPUSCULAR HEMOGLOBIN 28.8 pg (28.0-32.0); MEAN CORPUSCULAR VOLUME 84.9 fL (81.0-99.0); MEAN PLATELET VOLUME 8.5 fl (7.4-10.4); MONOCYTES % 7.1 % (2.0-8.0); NEUTROPHILS % 51.6 % (40.0-76.0); PLATELET 188 x1000/uL (130-400); RED BLOOD CELL COUNT 3.91 mill/uL (4.2-5.4); RED CELL DISTRIBUTION WIDTH 14.5 % (11.6-14.6)
[2023-04-01 06:36] LABS: CHLORIDE 110 mEq/L (98-107)
[2023-04-01] MEDS: NITROGLYCERIN OINT 1GM/INCH UDPKT TD SCH (06:51)
[2023-04-01] MEDS: BLOOD SUGAR DIAGNOSTIC STRIP TEST SCH ×2 (06:57→11:23)
[2023-04-01] MEDS: HYDROCODONE/ACETAMINOPHEN 5/325MG TABLET PO PRN (07:05)
[2023-04-01 08:00] VITALS: BP 123/73; PULSE 75; RESP 19; TEMP 98.6
[2023-04-01] MEDS ORDERED: FAMOTIDINE 20MG/2ML VIAL IV SCH (09:00)
[2023-04-01] MEDS ORDERED: ENOXAPARIN 100MG/ML SYR SUBCUT SCH ×2 (09:00→21:00)
[2023-04-01] MEDS ORDERED: MAGNESIUM OXIDE 400MG TABLET PO SCH (09:00)
[2023-04-01] MEDS ORDERED: ASPIRIN 81MG TABLET PO SCH (09:00)
[2023-04-01] MEDS ORDERED: CLOPIDOGREL 75MG TABLET PO SCH (09:00)
[2023-04-01] MEDS: ATENOLOL 50 MG TABLET PO SCH (09:02)
[2023-04-01] MEDS: INSULIN GLARGINE 100 UNITS/ML SUBCUT SCH (09:11)
[2023-04-01] MEDS: INSULIN LISPRO 100 UNITS/ML SUBCUT SCH ×2 (09:11→11:36)
[2023-04-01] MEDS ORDERED: MAGNESIUM 1 G PREMIX 100 ML IV SCH (11:00)
[2023-04-01 11:09] VITALS: BP 137/61; PULSE 77; TEMP 98.6; O2SAT 99
[2023-04-01 12:00] VITALS: BP 126/72; PULSE 77; RESP 19; TEMP 98.7
[2023-04-01] MEDS ORDERED: LEVOFLOXACIN 500MG PREMIX 100 ML IV SCH (18:00)
== END 2023-04-01 13:30 | disposition home or self-care (01) | DRG 246 ==
LOC: ER 10:08 → 6EST 18:45 → 8WST 03-30 14:59 → 3WST 03-31 17:39
PROVIDERS: ADMIT Internal Medicine; ATTEND Internal Medicine
PROC: 027135Z Dilation of Coronary Artery, Two Arteries with Two Drug-eluting Intraluminal Devices, Percutaneous Approach (ICD-10-PCS; principal; 2023-03-31)
PROC: 4A023N7 Measurement of Cardiac Sampling and Pressure, Left Heart, Percutaneous Approach (ICD-10-PCS; 2023-03-31)
PROC: B2111ZZ Fluoroscopy of Multiple Coronary Arteries using Low Osmolar Contrast (ICD-10-PCS; 2023-03-31)
PROC: B2131ZZ Fluoroscopy of Multiple Coronary Artery Bypass Grafts using Low Osmolar Contrast (ICD-10-PCS; 2023-03-31)
PROC: B2181ZZ Fluoroscopy of Left Internal Mammary Bypass Graft using Low Osmolar Contrast (ICD-10-PCS; 2023-03-31)
PROC: 4A033BC Measurement of Arterial Pressure, Coronary, Percutaneous Approach (ICD-10-PCS; 2023-03-31)
DX: T82.855A Stenosis of coronary artery stent, initial encounter (principal); I21.4 Non-ST elevation (NSTEMI) myocardial infarction; Z68.41 Body mass index [BMI] 40.0-44.9, adult; I25.10 Atherosclerotic heart disease of native coronary artery without angina pectoris; E11.51 Type 2 diabetes mellitus with diabetic peripheral angiopathy without gangrene; I10 Essential (primary) hypertension; E78.5 Hyperlipidemia, unspecified; D72.829 Elevated white blood cell count, unspecified; J45.909 Unspecified asthma, uncomplicated; E87.6 Hypokalemia; E66.01 Morbid (severe) obesity due to excess calories; F17.200 Nicotine dependence, unspecified, uncomplicated; E11.65 Type 2 diabetes mellitus with hyperglycemia; Z95.1 Presence of aortocoronary bypass graft; Z88.0 Allergy status to penicillin; Z79.02 Long term (current) use of antithrombotics/antiplatelets; Z79.82 Long term (current) use of aspirin; Z79.84 Long term (current) use of oral hypoglycemic drugs; Z79.899 Other long term (current) drug therapy; Y84.8 Other medical procedures as the cause of abnormal reaction of the patient, or of later complication, without mention of misadventure at the time of the procedure; Y92.89 Other specified places as the place of occurrence of the external cause
CPT/HCPCS: 36415; 71045; 74176; 80048; 80053; 80061; 80076; 80305; 81003; 82010; 82962; 83036; 83540; 83550; 83735; 83880; 84100; 84132; 84439; 84443; 84484; 85025; 93005; 93306; 93970; 99285; C1893; C9113; J1644; J1650; J1815; J1956; J2250; J2270; J2405; J2765; J3010; J3475; J3480; J3490; J7030; J7060; Q9967